=== PATIENT | female | born 1980 | race African-American/Black ===

== ENCOUNTER 2018-08-13 05:39 | Inpatient (IN) | payer BC ==
[2018-08-10 09:20] VITALS: BMI 25.7
[2018-08-13] MEDS ORDERED: MIDAZOLAM HCL 2 MG/2 ML SINGLE DOSE VIAL ONE ×3 (10:11→10:56)
[2018-08-13] MEDS ORDERED: ROCURONIUM BROMIDE 50 MG/5 ML VIAL ONE (10:11)
[2018-08-13] MEDS ORDERED: fentaNYL CITRATE 250 MCG/5 ML VIAL ONE (10:11)
[2018-08-13] MEDS ORDERED: LIDOCAINE HCL/PF 2% SDV 5ML VIAL ONE (10:12)
[2018-08-13] MEDS ORDERED: IBUPROFEN 800 MG/8 ML IJ IVPB PRN (10:33)
[2018-08-13] MEDS ORDERED: ONDANSETRON 4 MG/2 ML VIAL IVPUSH PRN ×2 (10:33→17:15)
[2018-08-13] MEDS ORDERED: oxyCODONE HCL 5 MG TABLET PO PRN ×2 (10:33)
--- NOTE | 2018-08-13 10:48 | HP ---
History & Physical Update - History History: No Change - Physical Physical: No Change - Assessment Assessment: No Change - Plan Plan: No Change (No Change in HP)
[2018-08-13] MEDS ORDERED: BUPIVACAINE HCL/PF 0.75% 10 ML VIAL ONE (10:54)
[2018-08-13] MEDS ORDERED: DEXAMETHASONE SOD PHOSPHATE/PF 10 MG/ML SDV ONE (10:54)
[2018-08-13] MEDS ORDERED: ceFAZolin SODIUM 1 GM VIAL IVPB ONE (11:50)
[2018-08-13] MEDS ORDERED: DEXAMETHASONE SOD PHOSPHATE 4 MG/1 ML VIAL ONE (11:58)
[2018-08-13] MEDS ORDERED: DESFLURANE GAS 240 ML BOTTLE IH ONE (12:27)
--- NOTE | 2018-08-13 14:46 | OP ---
Operative Note - Note: Operative Date: 08/13/18 Pre-Operative Diagnosis: Uterine Fibroids Operation: Open abdominal myomectomy, left ovarian cystectomy Post-Operative Diagnosis: Same as Pre-op Surgeon: Natasha Whitehead Water Plant Pump Operator Supervisor: Jesus Manuel Early (Second Assist: Gerri Mcmahon PA-C) Anesthesiologist/OTR VAN CDL TRUCK DRIVER: Edwin Turcios (TAP block) Anesthesia: General Specimens Removed: 24 fibroids, uterine cyst Estimated Blood Loss (mls): 300 Drains, Volume Out (mls): 400 (morocho-orange (pyridium)) Fluid Volume Replaced (mls): 1,000 Operative Report Dictated: Yes
[2018-08-13] MEDS ORDERED: morphine SULFATE 4 MG/ML VIAL IVPUSH PRN (16:42)
[2018-08-13] MEDS ORDERED: HYDROmorphone *PCA* 10MG/50ML DISP.SYRIN PCA ONE (16:51)
[2018-08-13] MEDS ORDERED: HYDROmorphone *PCA* 10MG/50ML DISP.SYRIN PCA SCH (17:15)
[2018-08-13] MEDS: LACTATED RINGERS SOLUTION 1,000 ML IV SCH (17:30)
[2018-08-13 20:50] LABS: BASO % 0.1 % (0-2.0); HEMATOCRIT 29.6 % (32.4-45.2); LYMPH % 7.1 % (8-40); MCH 22.1 pg (25.7-33.7); MCHC 30.4 g/dl (32.0-36.0); MEAN CELL VOLUME 72.6 fl (80-96); MONO % 2.8 % (3.8-10.2); PLATELET COUNT 531 K/MM3 (134-434); RBC 4.07 M/mm3 (3.60-5.2); RDW 19.6 % (11.6-15.6); WHITE BLOOD COUNT 15.9 K/mm3 (4.0-10.0)
[2018-08-13 20:54] LABS: ADD RBC MORPHOLOGY YES
[2018-08-13 22:48] LABS: ANISOCYTOSIS 1+; MACROCYTOSIS 1+; OVALOCYTE 1+; PLATELET ESTIMATE MOD INCREASED
[2018-08-14] MEDS: LACTATED RINGERS SOLUTION 1,000 ML IV SCH ×2 (00:10→08:35)
--- NOTE | 2018-08-14 07:11 | PN ---
Progress Note (short form) - Note Progress Note: 37 yo status post abdominal myomectomy, seen and evaluated. She's lying in bed; she only c/o mild discomfort. PE : Chest : CTA, no rales Hear : S1S2, RRR, no murmur. ABD : Soft, dressing dry and intact + incision pain ASS / Plan : Status post myomectomy Continue analgesia Ambulation D/C morocho catheter and IV fluid Regular diet F/U repeat CBC
[2018-08-14 07:12] LABS: BASO % 0.1 % (0-2.0); HEMATOCRIT 27.2 % (32.4-45.2); HEMOGLOBIN 8.1 GM/dL (10.7-15.3); LYMPH % 16.3 % (8-40); MCH 21.6 pg (25.7-33.7); MCHC 29.6 g/dl (32.0-36.0); MEAN CELL VOLUME 73.1 fl (80-96); NEUT % 75.6 % (42.8-82.8); PLATELET COUNT 468 K/MM3 (134-434); RBC 3.72 M/mm3 (3.60-5.2); RDW 19.5 % (11.6-15.6); WHITE BLOOD COUNT 13.7 K/mm3 (4.0-10.0)
--- NOTE | 2018-08-14 08:01 | PN ---
Progress Note (short form) - Note Progress Note: repeat cbc ordered for 1PM
--- NOTE | 2018-08-14 08:34 | PN ---
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
[2018-08-14] MEDS ORDERED: PCA PUMP KEY 1 EACH EACH ONE (09:26)
[2018-08-14] MEDS: IBUPROFEN 800 MG/8 ML IJ IVPB PRN ×2 (10:06→19:34)
[2018-08-14] MEDS: oxyCODONE HCL 5 MG TABLET PO PRN ×2 (12:55→17:20)
[2018-08-14 15:47] LABS: BASO % 0.3 % (0-2.0); EOS % 0.2 % (0-4.5); HEMATOCRIT 27.4 % (32.4-45.2); HEMOGLOBIN 8.3 GM/dL (10.7-15.3); LYMPH % 20.4 % (8-40); MCH 22.1 pg (25.7-33.7); MCHC 30.3 g/dl (32.0-36.0); MEAN CELL VOLUME 73.2 fl (80-96); MEAN PLT VOLUME 7.2 fl (7.5-11.1); MONO % 5.9 % (3.8-10.2); NEUT % 73.2 % (42.8-82.8); PLATELET COUNT 521 K/MM3 (134-434); RBC 3.74 M/mm3 (3.60-5.2); RDW 19.7 % (11.6-15.6); WHITE BLOOD COUNT 11.7 K/mm3 (4.0-10.0)
[2018-08-15] MEDS: oxyCODONE HCL 5 MG TABLET PO PRN ×6 (01:11→22:15)
[2018-08-15] MEDS: SIMETHICONE 80 MG TAB.CHEW (FP) PO PRN ×6 (01:34→22:15)
--- NOTE | 2018-08-15 07:47 | PN ---
Progress Note (short form) - Note Progress Note: POD#2 Pt states that she passed flatus last pm, tolerating a diet. No nausea or emesis. Overnight she had some vaginal bleeding, (padnot saturated) and blood this am with voiding. Pt denies any sustained dizzness with ambulating/oob. NO CP or SOB. Vital Signs Period Temp Pulse Resp BP Sys/Eddy Pulse Ox Last 24 Hr 98.5 F-99.3 F 78-99 18-18 108-122/64-72 98-100 GEN: A&0x3, appears uncomfortable CV: RR, tachycardic Lungs: CTA b/l anterioly ABD: soft, non-distended, inc tendneress. Incision c/d/i with steri-strips LE: no calf tenderness or sweling noted b/l, GURPREET in place CBC, BMP /18/18 15:10 Laboratory Tests 18/18 06:35 Hgb 8.1 L Hct 27.2 L A/P: 37 yo female, POD#2 s/p abd myomectomy Cont diet as tolerated OOB/ambulate check cbc/chem this am and will recheck on vaginal bleeding Added schedule tylenol for pain control Case D/w Dr. Whitehead, will add iron and folic acid and continue to monitor
[2018-08-15 08:23] LABS: BASO % 0.3 % (0-2.0); EOS % 0.4 % (0-4.5); HEMATOCRIT 25.8 % (32.4-45.2); LYMPH % 16.1 % (8-40); MCH 22.8 pg (25.7-33.7); MCHC 31.2 g/dl (32.0-36.0); MEAN CELL VOLUME 73.1 fl (80-96); MEAN PLT VOLUME 6.8 fl (7.5-11.1); MONO % 7.2 % (3.8-10.2); PLATELET COUNT 459 K/MM3 (134-434); RBC 3.52 M/mm3 (3.60-5.2); RDW 19.6 % (11.6-15.6); WHITE BLOOD COUNT 10.9 K/mm3 (4.0-10.0)
[2018-08-15 08:44] LABS: ANION GAP 5 MMOL/L (8-16); BLOOD UREA NITROGEN 7 mg/dL (7-18); CALCIUM 8.1 mg/dL (8.5-10.1); CHLORIDE 104 mmol/L (98-107); CO2 29 mmol/L (21-32); CREATININE 0.6 mg/dL (0.55-1.3); GLUCOSE,RANDOM 84 mg/dL (74-106); POTASSIUM 3.8 mmol/L (3.5-5.1); SODIUM 138 mmol/L (136-145)
[2018-08-15] MEDS: ACETAMINOPHEN 500 MG TABLET (FP) PO SCH ×3 (09:19→22:16)
[2018-08-15] MEDS: FOLIC ACID 1 MG TABLET (FP) PO SCH (09:39)
[2018-08-15] MEDS ORDERED: FERROUS SO4 325 MG TABLET (FP) PO SCH (10:00)
--- NOTE | 2018-08-15 10:56 | PN ---
Progress Note, Physician Chief Complaint: Pt having pain this am after [employer] dc'd yesterday. Now on oral medication. No anesthesia complaints. - Current Medication List Current Medications: Active Medications Acetaminophen (Tylenol -) 1,000 mg PO TID [facility] Stop: 08/15/18 22:01 Last Admin: 08/15/18 09:19 Dose: 1,000 mg Diphenhydramine HCl (Benadryl Injection -) 12.5 mg IVPUSH ONCE PRN PRN Reason: FOR ITCHING Ferrous Sulfate (Feosol -) 325 mg PO BID [facility] Folic Acid (Folic Acid -) 1 mg PO DAILY [facility] Last Admin: 08/15/18 09:39 Dose: 1 mg Morphine Sulfate (Morphine Sulfate) 4 mg IVPUSH Q4H PRN PRN Reason: PAIN LEVEL 6-10 Ondansetron HCl (Zofran Injection) 4 mg IVPUSH Q6H PRN PRN Reason: NAUSEA AND/OR VOMITING Ondansetron HCl (Zofran Injection) 4 mg IVPUSH Q4H PRN PRN Reason: NAUSEA AND/OR VOMITING Oxycodone HCl (Roxicodone -) 5 mg PO Q4H PRN PRN Reason: PAIN LEVEL 1-5 Last Admin: 08/14/18 17:20 Dose: 5 mg Oxycodone HCl (Roxicodone -) 10 mg PO Q4H PRN PRN Reason: PAIN LEVEL 6-10 Last Admin: 08/15/18 10:24 Dose: 10 mg Simethicone (Mylicon -) 80 mg PO Q4H PRN PRN Reason: GAS Last Admin: 08/15/18 10:24 Dose: 80 mg - Objective Vital Signs: Vital Signs Temperature 98.4 F 08/15/18 09:30 Pulse Rate 110 H 08/15/18 09:30 Respiratory Rate 20 08/15/18 09:30 Blood Pressure 124/75 08/15/18 09:30 O2 Sat by Pulse Oximetry (%) 98 08/14/18 21:46 Constitutional: Yes: Well Nourished, No Distress, Calm Neurological: Yes: WNL, Alert, Oriented Labs: CBC, BMP 08/15/18 08:00 08/15/18 08:00 Assessment/Plan POD#1 s/p myomectomy under [place]. Doing well. Will change Oxycodone 10mg dose to q4h prn to cover pain more effectively.
[2018-08-15 16:01] LABS: BASO % 0.5 % (0-2.0); HEMATOCRIT 24.8 % (32.4-45.2); HEMOGLOBIN 7.6 GM/dL (10.7-15.3); LYMPH % 22.1 % (8-40); MCH 22.4 pg (25.7-33.7); MCHC 30.5 g/dl (32.0-36.0); MEAN CELL VOLUME 73.4 fl (80-96); MONO % 7.6 % (3.8-10.2); NEUT % 68.8 % (42.8-82.8); PLATELET COUNT 441 K/MM3 (134-434); RBC 3.38 M/mm3 (3.60-5.2); RDW 19.7 % (11.6-15.6); WHITE BLOOD COUNT 11.6 K/mm3 (4.0-10.0)
[2018-08-15] MEDS: FERROUS SO4 325 MG TABLET (FP) PO SCH ×2 (19:06→22:15)
--- NOTE | 2018-08-15 20:27 | PN ---
Progress Note, Physician History of Present Illness: Pt seen/evaluated. Doing well overall. CBC today showed Hgb 7.6. Pt with vaginal bleeding each time she uses restroom. Denies dizziness/light headedness , pain better controlled. No SOB/F/C/SAUNDERS/CP. Tachycardia improving. - Current Medication List Current Medications: Active Medications Acetaminophen (Tylenol -) 1,000 mg PO TID [facility] Stop: 08/15/18 22:01 Last Admin: 08/15/18 14:27 Dose: 1,000 mg Diphenhydramine HCl (Benadryl Injection -) 12.5 mg IVPUSH ONCE PRN PRN Reason: FOR ITCHING Ferrous Sulfate (Feosol -) 325 mg PO BID [facility] Last Admin: 08/15/18 19:06 Dose: Not Given Folic Acid (Folic Acid -) 1 mg PO DAILY [facility] Last Admin: 08/15/18 09:39 Dose: 1 mg Morphine Sulfate (Morphine Sulfate) 4 mg IVPUSH Q4H PRN PRN Reason: PAIN LEVEL 6-10 Ondansetron HCl (Zofran Injection) 4 mg IVPUSH Q6H PRN PRN Reason: NAUSEA AND/OR VOMITING Ondansetron HCl (Zofran Injection) 4 mg IVPUSH Q4H PRN PRN Reason: NAUSEA AND/OR VOMITING Oxycodone HCl (Roxicodone -) 5 mg PO Q4H PRN PRN Reason: PAIN LEVEL 1-5 Last Admin: 08/14/18 17:20 Dose: 5 mg Oxycodone HCl (Roxicodone -) 10 mg PO Q4H PRN PRN Reason: PAIN LEVEL 6-10 Last Admin: 08/15/18 18:11 Dose: 10 mg Simethicone (Mylicon -) 80 mg PO Q4H PRN PRN Reason: GAS Last Admin: 08/15/18 18:11 Dose: 80 mg - Objective Vital Signs: Vital Signs Temperature 99.2 F 08/15/18 18:00 Pulse Rate 99 H 08/15/18 18:00 Respiratory Rate 20 08/15/18 18:00 Blood Pressure 129/76 08/15/18 18:00 O2 Sat by Pulse Oximetry (%) 98 08/14/18 21:46 Constitutional: Yes: Well Nourished, No Distress, Calm Eyes: Yes: Conjunctiva Clear Neck: Yes: Supple Cardiovascular: Yes: WNL Respiratory: Yes: Regular, CTA Bilaterally Gastrointestinal: Yes: Soft, Tenderness (appropriate post surgical tenderness) Genitourinary: Yes: Vaginal Bleeding Extremities: Yes: WNL Wound/Incision: Yes: Steri Strips Neurological: Yes: Alert, Oriented Psychiatric: Yes: Alert, Oriented Labs: CBC, BMP 08/15/18 15:38 08/15/18 08:00 Problem List - Problems (1) Anemia due to blood loss, acute Code(s): D62 - ACUTE POSTHEMORRHAGIC ANEMIA (2) S/P myomectomy Code(s): Z98.890 - OTHER SPECIFIED POSTPROCEDURAL STATES Assessment/Plan 37 y/o POD#2 s/p abdominal myomectomy Afebrile slightly tachycardic and anemic with Hgb 7.6 and trending down - pt to get 1uPRBC - discussed R/B/A with pt and family, agree to blood, will start transfusion now, recheck CBC in a.m. regular diet encourage ambulation PO pain meds if CBC stable in a.m. ok to d/c home
--- NOTE | 2018-08-15 20:32 | DS ---
Physical Examination Vital Signs: Vital Signs Temperature 99.2 F 08/15/18 18:00 Pulse Rate 99 H 08/15/18 18:00 Respiratory Rate 20 08/15/18 18:00 Blood Pressure 129/76 08/15/18 18:00 O2 Sat by Pulse Oximetry (%) 98 08/14/18 21:46 Constitutional: Yes: Well Nourished, No Distress, Calm Labs: CBC, BMP 08/15/18 15:38 08/15/18 08:00 Discharge Summary Reason For Visit: LEIOMYOMA OF UTERUS Current Active Problems Anemia due to blood loss, acute (Acute) S/P myomectomy (Acute) Hospital Course: Pt admitted on 08/13 for abdominal myomectomy. Pt underwent uncomplicated procedure on that date. Pt with post op anemia - was transfused 1 unit PRBC on POD#2. Pt was voiding, tolerating diet, ambulating and voiding by post op day 2. She was discharged home on post op day 3. Condition: Stable - Instructions Diet, Activity, Other Instructions: Dr. Natasha Whitehead Electric Lift Truck Driver discharge instructions Physical activity Resume your normal everyday activity as tolerated no heavy lifting or exercise until seen by your surgeon. You may walk unlimited eleanor of and climb stairs. You may resume driving the car when you feel safe and comfortable behind the wheel. No sexual activity as instructed by Dr. Whitehead. Wound care If you have a bandage, leave it on, and keep dry for 48-72 hours. After that time discard the outer bandage. If they are tapes on the skin under the out of bandage leave them in place. They will peel off in the next 7 to 10 days. Do Not Peel them off. You may shower the day after surgery. If there are tapes present on the skin, you may shower over them. Diet There are no dietary restrictions. Eat healthy, high-fiber foods. Drink 6 to 8 glasses of liquid each day. This will assist in keeping your bowels are regular. Pain management You may take Tylenol or acetaminophen or Ibuprofen (for example, Motrin, Advil etc.) from my pain prescription medication is ordered should be taken as prescribed for moderate to severe pain. Call Dr. Whitehead for any of the following: Severe pain not relieved by medication Fever of 101 or higher Excessive bleeding or drainage on dressing Inability to urinate Call the office at [phone] for an appointment in seven days. Disposition: HOME - Home Medications Comprehensive Discharge Medication List: Ambulatory Orders Tramadol HCl 50 mg PO Q6H PRN #30 tablet MDD 4 08/13/18
[2018-08-15 22:11] LABS: BASO % 0.6 % (0-2.0); EOS % 1.6 % (0-4.5); HEMATOCRIT 24.4 % (32.4-45.2); HEMOGLOBIN 7.6 GM/dL (10.7-15.3); LYMPH % 20.6 % (8-40); MCH 22.9 pg (25.7-33.7); MCHC 31.1 g/dl (32.0-36.0); MEAN CELL VOLUME 73.7 fl (80-96); MEAN PLT VOLUME 7.1 fl (7.5-11.1); MONO % 7.4 % (3.8-10.2); NEUT % 69.8 % (42.8-82.8); PLATELET COUNT 431 K/MM3 (134-434); RBC 3.32 M/mm3 (3.60-5.2); RDW 19.8 % (11.6-15.6); WHITE BLOOD COUNT 10.6 K/mm3 (4.0-10.0)
[2018-08-15 22:46] LABS: ALBUMIN 2.8 g/dl (3.4-5.0); ANION GAP 6 MMOL/L (8-16); BLOOD UREA NITROGEN 8 mg/dL (7-18); CALCIUM 8.3 mg/dL (8.5-10.1); CHLORIDE 104 mmol/L (98-107); CO2 29 mmol/L (21-32); CREATININE 0.6 mg/dL (0.55-1.3); GLUCOSE,RANDOM 97 mg/dL (74-106); SGOT/AST 29 U/L (15-37); SGPT/ALT 13 U/L (13-61); SODIUM 139 mmol/L (136-145)
[2018-08-15 22:48] LABS: ALK PHOS 47 U/L (45-117); BILIRUBIN,TOTAL 0.3 mg/dL (0.2-1); TOT PROT 5.8 g/dl (6.4-8.2)
[2018-08-15 23:27] LABS: URINE APPEARANCE CLOUDY; URINE BILIRUBIN NEGATIVE (<2.0 mg/dL); URINE COLOR RED; URINE GLUCOSE (UA) NEGATIVE (NEGATIVE); URINE KETONE NEGATIVE (NEGATIVE); URINE LEUK ESTERASE TRACE (NEGATIVE); URINE NITRITE NEGATIVE (NEGATIVE); URINE UROBILINOGEN NEGATIVE mg/dL (0.2-1.0)
[2018-08-15 23:28] LABS: URINE PROTEIN 2+ (NEGATIVE)
[2018-08-15 23:32] LABS: URINE MUCUS RARE
[2018-08-16] MEDS: SIMETHICONE 80 MG TAB.CHEW (FP) PO PRN (06:27)
[2018-08-16] MEDS: oxyCODONE HCL 5 MG TABLET PO PRN ×2 (06:28→10:35)
[2018-08-16 07:48] LABS: HEMATOCRIT 27.8 % (32.4-45.2); HEMOGLOBIN 8.7 GM/dL (10.7-15.3); MCH 23.5 pg (25.7-33.7); MCHC 31.5 g/dl (32.0-36.0); MEAN CELL VOLUME 74.6 fl (80-96); MEAN PLT VOLUME 6.8 fl (7.5-11.1); PLATELET COUNT 389 K/MM3 (134-434); RBC 3.72 M/mm3 (3.60-5.2); RDW 19.1 % (11.6-15.6); WHITE BLOOD COUNT 9.7 K/mm3 (4.0-10.0)
[2018-08-16 08:03] VITALS: BP 123/81; PULSE 85; TEMP 98.8
[2018-08-16] MEDS: FERROUS SO4 325 MG TABLET (FP) PO SCH (09:10)
[2018-08-16] MEDS: FOLIC ACID 1 MG TABLET (FP) PO SCH (09:10)
--- NOTE | 2018-08-16 10:05 | HOSP ---
Subjective - Review of Symptoms Subjective: Paged by nursing staff that patient experienced some tingling at IV Site during pRBC transfusion. General: No: Chills Pulmonary: No: Dyspnea, Cough Cardiovascular: No: Chest Pain, Light Headedness Gastrointestinal: No: Nausea, Vomiting Neurological: No: Numbness Physical Examination Vital Signs: Vital Signs Temperature 98.8 F 08/16/18 08:00 Pulse Rate 85 08/16/18 08:00 Respiratory Rate 18 08/16/18 08:00 Blood Pressure 123/81 08/16/18 08:00 O2 Sat by Pulse Oximetry (%) 98 08/14/18 21:46 Eyes: Yes: EOM Intact, PERRL Cardiovascular: Yes: Regular Rate and Rhythm, S1, S2. No: JVD, Gallop, Murmur, Rub Respiratory: Yes: Regular, CTA Bilaterally Gastrointestinal: Yes: Normal Bowel Sounds, Soft. No: Distention, Tenderness Neurological: Yes: Other (AOx3, Gross Sensation intact, Muscle Strength 5/5 throughout) Labs: Laboratory Results - last 24 hr 08/13/18 08/15/18 08/15/18 08:49 15:38 21:30 WBC 11.6 H RBC 3.38 L Hgb 7.6 L Hct 24.8 L MCV 73.4 L MCH 22.4 L MCHC 30.5 L RDW 19.7 H Plt Count 441 H MPV 7.0 L Absolute Neuts (auto) 8.0 Neutrophils % 68.8 Lymphocytes % 22.1 D Monocytes % 7.6 Eosinophils % 1.0 D Basophils % 0.5 Nucleated RBC % 0 Sodium Potassium Chloride Carbon Dioxide Anion Gap BUN Creatinine Creat Clearance w eGFR Random Glucose Calcium Total Bilirubin AST ALT Alkaline Phosphatase Total Protein Albumin Urine Color Urine Appearance Urine pH Ur Specific [place] Urine Protein Urine Glucose (UA) Urine Ketones Urine Blood Urine Nitrite Urine Bilirubin Urine Urobilinogen Ur Leukocyte Esterase Urine WBC (Auto) Urine RBC (Auto) Urine Mucus Blood Type O POSITIVE Antibody Screen Negative Crossmatch See Detail See Detail Transfuse React Work-up See comment 08/15/18 08/15/18 08/15/18 21:30 21:30 23:10 WBC 10.6 H RBC 3.32 L Hgb 7.6 L Hct 24.4 L MCV 73.7 L MCH 22.9 L MCHC 31.1 L RDW 19.8 H Plt Count 431 MPV 7.1 L Absolute Neuts (auto) 7.4 Neutrophils % 69.8 Lymphocytes % 20.6 Monocytes % 7.4 Eosinophils % 1.6 Basophils % 0.6 Nucleated RBC % 0 Sodium 139 Potassium 4.0 Chloride 104 Carbon Dioxide 29 Anion Gap 6 L BUN 8 Creatinine 0.6 Creat Clearance w eGFR > 60 Random Glucose 97 Calcium 8.3 L Total Bilirubin 0.3 AST 29 ALT 13 Alkaline Phosphatase 47 Total Protein 5.8 L Albumin 2.8 L Urine Color Red Urine Appearance Cloudy Urine pH 5.0 Ur Specific [place] 1.023 Urine Protein 2+ H Urine Glucose (UA) Negative Urine Ketones Negative Urine Blood 3+ H Urine Nitrite Negative Urine Bilirubin Negative Urine Urobilinogen Negative Ur Leukocyte Esterase Trace Urine WBC (Auto) 534 Urine RBC (Auto) 3759 Urine Mucus Rare Blood Type Antibody Screen Crossmatch Transfuse React Work-up Hospitalist Encounter Assessment: Patient experienced tingling during transfusion administration - Confined to IV Site, likely normal reaction to PRBC transfusion - No signs of allergic reaction, no rash, no signs of anaphylaxis - D/C pRBC's for now, return pRBC unit to blood bank as per protocol - Can restart pRBC's if clinically indicated running at a slower rate to minimize burning - Continue to monitor closely for signs of Anemia including SOB, Lightheadness, Fatigue Visit type - Emergency Visit Emergency Visit: Yes ED Registration Date: 08/13/18 Care time: The patient presented to the Emergency Department on the above date and was hospitalized for further evaluation of their emergent condition. - New Patient This patient is new to me today: Yes Date on this admission: 08/16/18 - Critical Care Critical Care patient: No
[2018-08-16 11:04] LABS: ANISOCYTOSIS 1+; MACROCYTOSIS 0; PLATELET ESTIMATE NORMAL; TARGET CELLS 1+
--- NOTE | 2018-08-16 11:52 | PN ---
Progress Note (short form) - Note Progress Note: POD#3 Pt received PRBC overnight, 1 unit plus 50ml from another unit. She is still passing flatus, no BM. No nausea/emesis with eating. Still having some bleeding when using the restroom. Feels better after receiving blood yesterday. Vital Signs Period Temp Pulse Resp BP Sys/Eddy Pulse Ox Last 24 Hr 98.3 F-99.2 F 85-99 18-20 123-132/71-81 GEN: A&0x3, NAD CV: RRR Lungs: CTA b/l ABD: soft, non-distended, inc tenderness. Inc c/d/i LE: TEds in place. No calf tenderness or swelling noted CBC, BMP 08/16/ 06:30 08/15/18 21:30 A/p: 37 yo female s/p abd myomectomy with acute post-op blood loss anemia, s/p PRBC transfusion Continue diet as tolerated Pain medications as needed H&H/tachycardia improved Plan for possible discharge today, discharged with iron/folic acid/stool softners and pain medications D/w Dr. Whitehead
--- NOTE | 2018-08-16 17:03 | PATH ---
Surgical Pathology Report Patient Name: SUSANA SORIA [facility]. Rec. 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 Specimen(s) Received A: PERITONEAL CYST B: LEFT OVARIAN CYST C: FIBROID TUMORS Clinical History Leiomyoma of uterus Final Diagnosis A. PERITONEAL CYST, EXCISION: CONSISTENT WITH PERITONEAL INCLUSION CYST. ADJACENT TISSUE SHOWING ENDOMETRIAL GLANDS WITH SURROUNDING ENDOMETRIAL STROMA, CONSISTENT WITH ENDOMETRIOSIS. Comment: Immunohistochemistry stain CD10 highlighted the endometrial stromal tissue. CD10 was performed at [place], [place] ([id number]) interpreted at [facility] Positive and negative controls (internal if applicable) show appropriate results. B. LEFT OVARIAN CYST, EXCISION: HEMORRHAGIC CORPUS LUTEUM. C. FIBROID TUMORS, EXCISION: LEIOMYOMA, MULTIPLE, WITH FOCAL DEGENERATIVE CHANGE. Electronically Signed Demar Bey M.D. Gross Description A. Received in formalin labeled "peritoneal cyst," is a 1.2 x 0.7 x 0.5 cm jackson-robison, focally disrupted cyst. The specimen is serially sectioned and entirely submitted in one cassette. B. Received in formalin labeled "left ovarian cyst," is a 3.0 x 2.7 x 1.0 cm focally disrupted cyst. The outer surface is jackson-brown and focally hemorrhagic. Sectioning reveals foci of hemorrhage within the lumen. No excrescences are identified. Top Waddy sections are submitted in 3 cassettes. C. Received in formalin labeled "fibroid tumors," is a 200 g aggregate of 24 jackson, rubbery nodules ranging from 0.9-5.0 cm in greatest dimension. Sectioning reveals jackson, rubbery parenchyma with whorled architecture and foci of degeneration. Top Waddy sections are submitted in 10 cassettes. DL/08/14/2018 saudi08/14/2018
== END 2018-08-16 13:32 | disposition home or self-care (01) | DRG 742 ==
LOC: JSAMEDAYSX 05:39 → EDSTATUS 08:00 → J3W 18:00
PROVIDERS: ADMIT Obstetrics & Gynecology; ATTEND Obstetrics & Gynecology
PROC: 0UB10ZZ Excision of Left Ovary, Open Approach (ICD-10-PCS; 2018-08-13)
PROC: 0UB90ZZ Excision of Uterus, Open Approach (ICD-10-PCS; principal; 2018-08-13 10:00)
PROC: 30233N1 Transfusion of Nonautologous Red Blood Cells into Peripheral Vein, Percutaneous Approach (ICD-10-PCS; 2018-08-15)
DX: D25.9 Leiomyoma of uterus, unspecified (principal); D62 Acute posthemorrhagic anemia; R00.0 Tachycardia, unspecified; N83.202 Unspecified ovarian cyst, left side
CPT/HCPCS: 36415; 36430; 36511; 80048; 80053; 81003; 81015; 84703; 85025; 86078; 86850; 86900; 86901; 86922; 87040; 87086; 88304-TC; 88305-TC; 94010; 94760; P9038; P9058